=== PATIENT | male | born 1955 | race Caucasian/White ===

== ENCOUNTER 2024-01-04 08:46 | Emergency (ER) | payer MEDICARE, BC, SELFPAY ==
[2024-01-04 08:48] VITALS: BP 120/77
--- NOTE | 2024-01-04 09:54 | ED.GENMED ---
History of Present Illness
General
Chief Complaint: Musculo-Skeletal Complaint
Source: patient
Exam Limitations: none
Time Seen by Provider: 01/04/24 09:03
Nursing documentation reviewed up to this point in time: agreed with
History of Present Illness
History of Present Illness:
68-year-old male with a past medical history of prior lumbar fusion who presents to the emergency room for evaluation of right hip pain. Patient reports onset of symptoms 3 days ago and they have been constant and occasionally quite intense since
then. He reports pain is starting to affect his sleep which finally prompted ER visit. He denies any fall, trauma, or injury that he is aware of. Pain is located in the right lateral hip and he says that it will occasionally radiate down his leg.
He denies any pain in the back. He denies any numbness or weakness in the extremities. He denies any fevers or chills. He denies any other complaints.
Review of Systems
Review of Systems
All Other Systems: ROS reviewed and negative except as documented in HPI and ROS
Constitutional: Denies fever or chills
Musculoskeletal: Reports joint pain (Hip pain); Denies edema or back pain
Neurological: Denies weakness or numbness
Phy Exam
Physical Exam
Physical Exam:
General: Awake, alert, oriented x3; no acute distress
Head: Normocephalic, atraumatic
Eyes: Conjunctiva normal
Throat: Airway intact, handling secretions
Neck: Trachea midline, moving through comfortable range of motion
Lungs: Breathing comfortably no distress
Heart: Regular rate
Back: No reproducible tenderness in the lumbar spine; he has a negative straight leg raise test�no shooting pains down the leg when raising the right leg while supine and in fact this actually made his pain feel better
Neuro: No gross deficits�specifically motor and sensory function intact right lower extremity
Skin: no rash, no erythema or wounds right hip or leg
Extremities: Patient has marked point tenderness in the lateral hip directly over the greater trochanter; he has full active range of motion of the right hip with mild discomfort; he has no reproducible tenderness in the right thigh or lower leg, no
joint effusion in the right knee and full comfortable range of motion in the knee; he has good strong right femoral and DP pulses
Scores
Heart Failure Risk
Heart Failure Risk Score: Not Applicable
Heart Score for Chest Pain Patients
STEMI patient?: Not applicable
Withdrawal Assessment of Alcohol
Withdrawal Assessment Completed?: Not applicable
Course
Orders/Labs/Results
Orders:
Orders
01/04/24 09:22
CR Hip - RT w/wo Pel 2-3 Vw* Urgent
Comment:
Reason For Exam: right hip pain
Include a pelvis x-ray?: Yes
01/04/24 09:50
Ketorolac [Toradol] 30 mg IM NOW STA
Vital Signs
Initial and Last Documented VS:
Initial Vital Signs
Temp Pulse Resp BP Pulse Ox
36.7 C 64 18 120/77 97
01/04/24 08:48 01/04/24 08:48 01/04/24 08:48 01/04/24 08:48 01/04/24 08:48
Last Documented Vital Signs
Temp Pulse Resp BP Pulse Ox
36.7 C 64 18 120/77 97
01/04/24 08:48 01/04/24 08:48 01/04/24 08:48 01/04/24 08:48 01/04/24 08:48
MDM/Problems Addressed
Differential Diagnosis Includes:
Osteoarthritis, bursitis, tendinitis, sciatica, fracture
MDM/Problems Addressed:
68-year-old male presents for evaluation of atraumatic right hip pain that occasionally will radiate down the right leg. Vital signs normal. Exam as above�has point tenderness over the greater trochanter. Will check an x-ray. Treat with Toradol.
Very low clinical suspicion for septic arthritis or other emergency based on his physical exam�there are actually certain positions through range of motion which improve his pain which I think strongly against a septic arthritis which should be
markedly painful on range of motion of the joint. Furthermore he has no fever and no erythema of the joint. No indication for emergent arthrocentesis. Clinically I suspect this may be an acute bursitis given his point tenderness. Reassess after
the above.
X-ray reviewed by me shows no fracture or dislocation but he does appear to have calcified tendinitis on the right greater trochanter which is the area of his maximal tenderness. Suspect this is the likely etiology of his symptoms. Will plan to
treat with NSAIDs, topical lidocaine patch, rest. Will provide orthopedic referral as needed. Patient comfortable with this plan. Spoke about return precautions all questions answered.
*Radiology
Radiology exam reviewed: preliminary read by ED provider and radiology read reviewed
*Pulse Oximetry
Patient hypoxic: no
*Critical Care Note
Total Time (30-74mins, 75-104mins- exclusive of procedures): Not Applicable
Data Reviewed
Source: patient
ED Attending Note
-
Portions of this chart may have been created with voice recognition software.� Occasional wrong word or��sound alike� substitutions may have occurred due to the inherent limitations of voice recognition software.
Discharge Plan
Departure
Patient Disposition: Home (Routine Discharge)
Date of Disposition: 01/04/24
Time of Disposition: 10:07
Patient with high blood pressure during this ER visit?: No
Discharge Problem:
Acute pain of right hip
Instructions: Tendinopathy (DC)
Prescriptions:
New
naproxen [Naprosyn] 500 mg tablet
500 mg PO BID Qty: 20 0RF
lidocaine 5 % adhesive patch,medicated
1 patch topical DAILY Qty: 30 0RF
Referrals:
Srinivasan Plaza DO [Family Provider] - Follow up in 5-7 days
Thien Hunter MD [Active] - As needed (Orthopedist)
Activity Restrictions/Additional Instructions:
Thank you for visiting the Emergency Department at [facility].
1. Please schedule a follow up appointment as directed. Call first thing tomorrow morning to make an appointment.
2. If indicated, please take your medications as instructed and indicated on discharge paperwork.
3. If any of your symptoms do not improve, or persist, or become more severe within 6-12 hours, please return to the emergency department for further care.
4. Please return to the emergency department if you develop a headache, neck pain/stiffness, fever greater than 100.4F, chest pain, shortness of breath, persistent nausea, vomiting, slurred speech, difficulty walking, numbness/tingling, weakness,
signs of infection or any other symptoms that are worrisome to you.
Please call [phone] if you have any questions.
Interventions
Interventions:
*General Assessment Last Done: 01/04/24 08:48
*ED COVID-19 Vaccine History Last Done: 01/04/24 08:48
ED-Musculoskeletal Assessment Last Done: 01/04/24 09:03
Discharge Date and Time
Print Language: ALGERIAN
[2024-01-04] MEDS: TORADOL 30 MG IM (10:03)
== END 2024-01-04 10:28 | disposition home or self-care (01) ==
LOC: EMR 08:46
PROVIDERS: EMERGENCY PHYSICIAN Emergency Medicine; FAMILY PHYSICIAN Internal Medicine
DX: M25.551 Pain in right hip (principal)
CPT/HCPCS: 99284; 96372; 73502

== ENCOUNTER 2024-06-04 06:27 | Outpatient (RCR) | payer MEDICARE, BC, SELFPAY | END 2024-06-04 23:59 | disposition home or self-care (01) | LOC: RST 06:27 | PROVIDERS: ATTENDING PHYSICIAN Otolaryngology | DX: R49.0 Dysphonia (principal) | CPT/HCPCS: 92507; 92524 ==

== ENCOUNTER 2024-08-07 06:33 | Outpatient (RCR) | payer MEDICARE, BC, SELFPAY | END 2024-08-11 23:59 | disposition home or self-care (01) | LOC: RST 06:33 | PROVIDERS: ATTENDING PHYSICIAN Otolaryngology | DX: R49.0 Dysphonia (principal) | CPT/HCPCS: 92507 ==